=== PATIENT | male | born 1965 | race American Indian/Alaskan Native ===

== ENCOUNTER 2019-03-28 07:03 | Day surgery (SDC) | payer OTHER ==
[~2019-03-28 07:03] MED LIST: NACL 0.9% 1000 ML 1,000 ML IV SCH
[2019-03-28] MEDS ORDERED: WATER FOR IRRIG STERILE ONE (07:23)
[2019-03-28] MEDS ORDERED: DIPRIVAN 10 MG/ML IV ONE ×3 (07:43)
[2019-03-28] MEDS ORDERED: XYLOCAINE 1% 20 mL ONE (07:43)
--- NOTE | 2019-03-28 07:53 | Anesthesia Consultation ---
Anesthesia Consult and Med Hx Date of service: 03/28/19 - Airway Anesthetic Teeth Evaluation: Good ROM Head & Neck: Adequate Mental/Hyoid Distance: Adequate Mallampati Class: Class II Intubation Access Assessment: Good - Pulmonary Exam CTA: Yes - Cardiac Exam Cardiac Exam: RRR - Pre-Operative Health Status ASA Pre-Surgery Classification: ASA2 Proposed Anesthetic Plan: MAC - Cardiovascular System Hx Hypertension: Yes (took amlodopine at 0500) - Additional Comments Anesthesia Medical History Comments: obese
--- NOTE | 2019-03-28 07:55 | Anesthesia Day of Surgery ---
Anesthesia Day of Surgery - Day of Surgery Patient Examined: Yes Patient H&P Reviewed: Yes Patient is NPO: Yes
--- NOTE | 2019-03-28 08:59 | Procedure Note ---
Date of procedure: 03/28/19 Pre-op diagnosis: Colon Polyp Screening/H/O Colon Polyp Post-op diagnosis: other Procedure: Colonoscopy with Cold Snare Polypectomy and Cold Biopsy Anesthesia: MAC Surgeon: MATTHEW BAXTER Estimated blood loss: minimal Pathology: list Specimen disposition: to lab Condition: stable Disposition: same day (Encourage fiber intake; avoid aspirin and NSAID for 4 days, otherwise resume home medication. Follow up in 1 to 2 weeks ([phone]).)
[2019-03-28 09:17] VITALS: BP 132/88
--- NOTE | 2019-03-28 09:26 | Operative Report ---
PROCEDURE: Colonoscopy with cold biopsy and snare polypectomy. INDICATIONS: This is a 54-year-old -Irish gentleman who has a prior history of colon polyp. Last colonoscopy was done several years ago. Colonoscopy was done to make sure there was not any recurrence of any polyps. DETAILS OF PROCEDURE: Procedure was done after getting informed consent with MAC anesthesia. Initial rectal exam was unremarkable. The patient had a small external hemorrhoid. Instrument was passed through the rectum onto the cecum, which was identified with ileocecal valve and the appendiceal orifice. Visualization was fair to good. The scope was retroflexed in the cecum, which did not show any additional pathology. There were a few scattered diverticula noted in the proximal colon, the transverse colon showed normal mucosa. Again, there were a few diverticula noted in the left colon. In the rectosigmoid area, there were multiple small polyps noted, one was a slightly larger polyp that was removed by snare polypectomy, rest by cold biopsy. These are possibly hyperplastic in type and the rectum showed minor internal hemorrhoid on the retroverted view. There was minimal bleeding from the biopsy sites. No complications associated with the procedure. ASSESSMENT: Colon polyp screening, prior history of colon polyps, multiple small rectosigmoid polyps that were removed, few scattered diverticula involving the left in the proximal colon, minor internal hemorrhoid as well as a minor external hemorrhoid. PLAN: To encourage fiber supplements, have the patient avoid aspirin and aspirin-related products for the next 4 days. Otherwise, resume home medication and follow up in the office in 1-2 weeks' time. Procedure was done in the GI lab with assistance of the GI lab team, which included the GI nurse Ghislaine LIZARRAGA as well as Winston gonsalez and with assistance of anesthesia. The patient will also be encouraged to take fiber supplements. JOB# [id number] ASHLEY/QUINN
--- NOTE | 2019-03-28 15:42 | Post Anesthesia Evaluation ---
- Post Anesthesia Evaluation Patient Participated: Yes Airway Patent: Yes Stable Respiratory Function: Yes Nausea/Vomiting: No Temp > 96.8F: Yes Pain Manageable: Yes Adequeate Hydration: Yes Anesthesia Complications: No Block Receding Appropriately: Not Applicable Patient on Ventilator: No
== END 2019-03-28 09:21 | disposition home or self-care (01) ==
LOC: GIO 07:03
DX: Z12.11 Encounter for screening for malignant neoplasm of colon (principal); K62.1 Rectal polyp; K63.5 Polyp of colon; K64.8 Other hemorrhoids; K57.30 Diverticulosis of large intestine without perforation or abscess without bleeding; I10 Essential (primary) hypertension; Z79.899 Other long term (current) drug therapy
CPT/HCPCS: 45380; 45385; 88305; J2704; J7030